=== PATIENT | male | born 1970 | race Caucasian/White ===

== ENCOUNTER 2017-12-20 12:28 | Emergency (ER) | payer BC ==
[2017-12-20 12:37] VITALS: BP 167/85
--- NOTE | 2017-12-20 12:48 | EDPHY ---
H & P Time Seen by Provider: 12/20/17 12:31 HPI/ROS: CHIEF COMPLAINT: Right ear pain HISTORY OF PRESENT ILLNESS: Patient with congestion and other symptoms of upper respiratory infection for about 1 and half weeks. Some sore throat, minimal cough, denies fever. Ear pain began today on the right and is severe. No drainage noted. REVIEW OF SYSTEMS: Negative except per HPI. General Appearance: Alert, no distress. Eyes: Pupils equal and round no icterus ENT: Oropharynx erythematous, bilateral tonsillar hypertrophy, no exudate. Right tympanic membrane bulging, opacified, some erythema. No perforation. Left TM normal. Mild cervical adenopathy. Respiratory: No respiratory distress Neurological: Awake, alert, no focal deficits. Skin: Warm and dry, no rashes. Musculoskeletal: Neck is supple nontender. Extremities are symmetrical, full range of motion, no edema. Psychiatric: Patient is oriented X 3, there is no agitation. Medical/surgical history: Bipolar disorder. Social history: Nonsmoker. Smoking Status: Never smoked Constitutional: Initial Vital Signs Temperature (C) 36.6 C 12/20/17 12:35 Heart Rate 83 12/20/17 12:35 Respiratory Rate 18 12/20/17 12:35 Blood Pressure 167/85 H 12/20/17 12:35 O2 Sat (%) 97 12/20/17 12:35 O2 Delivery Mode Room Air Allergies/Adverse Reactions: No Allergies [NKDA] Allergy (Verified 12/20/17 11:42) Home Medications: Medication Instructions Recorded Propecia 08/12/15 Amoxicillin 500 mg PO TID 10 Days tab.chew 12/20/17 Lamictal 12/20/17 Walls Aspartate 12/20/17 Medical Decision Making Differential Diagnosis: Differential diagnosis includes but is not limited to otitis media, tympanic membrane perforation, sinusitis, strep pharyngitis, other upper respiratory infection. After evaluation patient with obvious right otitis media without perforation. No signs of otitis externa, mastoiditis, strep pharyngitis, or other serious bacterial infection. Plan is to start antibiotics. Recommended follow-up with PCP or ENT as indicated if symptoms not improving. Stable for discharge. Departure - Departure Disposition: Home, Routine, Self-Care Clinical Impression: Acute upper respiratory infection Otitis media Qualifiers: Otitis media type: unspecified Chronicity: acute Qualified Code(s): H66.90 - Otitis media, unspecified, unspecified ear Condition: Good Instructions: Ear Infection (ED) Additional Instructions: Take antibiotics as prescribed until complete. Use Sudafed or other decongestant [id number] as recommended. Follow up with her primary care physician later this week. Referrals: Aletha Jaquez PA [Primary Care Provider] - As per Instructions Prescriptions: Amoxicillin 500 mg PO TID 10 Days tab.chew
== END 2017-12-20 12:55 | disposition home or self-care (01) ==
LOC: CED 12:28
DX: H66.91 Otitis media, unspecified, right ear (principal); J06.9 Acute upper respiratory infection, unspecified